=== PATIENT | male | born 1950 | race African-American/Black ===

== ENCOUNTER 2017-10-18 22:10 | Inpatient (IN) | payer OTHER ==
[~2017-10-18] VITALS: Ht 175.3 cm; Wt 97.1 kg
[2017-10-18] MEDS ORDERED: NITROGLYCERIN OINT 1GM/INCH UDPKT TD ONE (23:30)
[2017-10-18] MEDS ORDERED: MORPHINE SULFATE 4 MG/ML CPJ (NOT FOR IM USE) IV ONE (23:45)
[2017-10-18 23:53] LABS: INR 1.1; PROTHROMBIN TIME 11.3 sec (9.4-11.6)
[2017-10-18 23:54] LABS: BASOPHILS % 0.4 % (0.0-2.0); EOSINOPHILS % 1.4 % (0.0-5.0); HEMOGLOBIN. 12.1 g/dL (14.0-18.0); LYMPHOCYTES % 17.3 % (20.0-50.0); MEAN CORPUSCULAR HEMOGLOBIN 28.4 pg (28.0-32.0); MEAN CORPUSCULAR VOLUME 87.1 fL (80.0-94.0); MEAN PLATELET VOLUME 8.3 fl (7.4-10.4); MONOCYTES % 7.3 % (2.0-8.0); NEUTROPHILS % 73.6 % (40.0-76.0); PLATELET 184 x1000/uL (130-400); RED BLOOD CELL COUNT 4.25 mill/uL (4.7-6.1); RED CELL DISTRIBUTION WIDTH 14.6 % (11.6-14.6)
[2017-10-18 23:58] LABS: CARBON DIOXIDE 28 mEq/L (21-32); CHLORIDE 106 mEq/L (98-107); TROPONIN I 0.15 ng/mL (0.00-0.04)
[2017-10-19] MEDS ORDERED: MORPHINE SULFATE 10 MG/ML CPJ IV ONE (00:45)
[2017-10-19] MEDS ORDERED: MORPHINE SULFATE 10 MG/ML CPJ IV SCH (01:00)
[2017-10-19] MEDS ORDERED: AMLODIPINE ×2 (05:34)
[2017-10-19] MEDS ORDERED: LISINOPRIL (05:34)
[2017-10-19] MEDS ORDERED: METOPROLOL (05:34)
[2017-10-19] MEDS ORDERED: PLAVIX (05:34)
[2017-10-19] MEDS ORDERED: ASPI-1159 PO (05:34)
[2017-10-19 05:35] VITALS: BP 167/82
[2017-10-19] MEDS ORDERED: ONDANSETRON HCL 4MG/2ML VIAL IV PRN (06:00)
[2017-10-19] MEDS ORDERED: HYDROCODONE/ACETAMINOPHEN 5/325MG TABLET PO PRN (06:00)
[2017-10-19] MEDS ORDERED: IPRATROPIUM/ALBUTEROL 0.5-3(2.5)MG/3ML NEB INH PRN (06:00)
[2017-10-19] MEDS ORDERED: CLONIDINE 0.1MG TABLET PO PRN (06:00)
[2017-10-19] MEDS ORDERED: DOCUSATE SODIUM 100MG CAPSULE PO PRN (06:00)
[2017-10-19] MEDS ORDERED: ACETAMINOPHEN 325MG TABLET PO PRN (06:00)
[2017-10-19] MEDS: BLOOD SUGAR DIAGNOSTIC STRIP TEST SCH ×4 (06:27→20:36)
[2017-10-19] MEDS: MORPHINE SULFATE 2 MG/ML CPJ (NOT FOR IM USE) IV PRN ×2 (06:29→15:22)
[2017-10-19] MEDS ORDERED: DEXTROSE 50% WATER 50ML SYRINGE IV PRN (06:30)
[2017-10-19] MEDS: INSULIN LISPRO 100 UNITS/ML SUBCUT SCH ×4 (06:41→20:36)
[2017-10-19 08:00] VITALS: BP 167/80
[2017-10-19 08:01] LABS: CREATINE KINASE MB FRACTION 7.8 ng/mL (0.5-3.6)
[2017-10-19 08:05] LABS: TROPONIN I 1.1 ng/mL (0.00-0.04)
[2017-10-19] MEDS ORDERED: AMLODIPINE 10MG TABLET PO SCH (09:00)
[2017-10-19] MEDS ORDERED: ENOXAPARIN 40MG/0.4ML SYR SUBCUT SCH (09:00)
[2017-10-19] MEDS ORDERED: CLOPIDOGREL 75MG TABLET PO SCH ×3 (09:00→10:00)
[2017-10-19] MEDS: METOPROLOL TARTRATE 25MG TABLET PO SCH ×2 (09:13→20:39)
[2017-10-19] MEDS ORDERED: IODIXANOL 320MG/ML 100 ML BOTTLE IV ONE (09:48)
[2017-10-19] MEDS ORDERED: LIDOCAINE HCL 1% 20ML VIAL (Pyxis) INJ ONE (09:49)
[2017-10-19 10:33] LABS: T4 FREE 0.97 ng/dL (0.76-1.46)
[2017-10-19] MEDS ORDERED: IOHEXOL-350 100 ML BOTTLE ONE (11:43)
[2017-10-19 12:00] VITALS: BP 138/73
[2017-10-19 15:44] LABS: CREATINE KINASE MB FRACTION 6.1 ng/mL (0.5-3.6)
[2017-10-19 15:54] LABS: TROPONIN I 0.84 ng/mL (0.00-0.04)
[2017-10-19 16:00] VITALS: BP 154/81
[2017-10-19 20:00] VITALS: BP 157/80
[2017-10-19 20:47] VITALS: BP 157/80
[2017-10-19] MEDS ORDERED: ENOXAPARIN 100MG/ML SYR SUBCUT SCH (21:00)
[2017-10-20] MEDS ORDERED: ASPIRIN 81MG TABLET PO SCH (09:00)
== END 2017-10-19 21:59 | disposition short-term general hospital (02) | DRG 280 ==
LOC: ER 22:34 → EDBEDREQ 23:38 → EDBEDREQTM 23:38 → ENRESERV 10-19 02:53 → SUPCPDRO 10-19 05:52 → 5WST 10-19 06:05
PROVIDERS: ADMIT Hospitalist; ATTEND Hospitalist
DX: I21.4 Non-ST elevation (NSTEMI) myocardial infarction (principal); I50.31 Acute diastolic (congestive) heart failure; I11.0 Hypertensive heart disease with heart failure; E11.9 Type 2 diabetes mellitus without complications; E78.5 Hyperlipidemia, unspecified; M81.0 Age-related osteoporosis without current pathological fracture; I25.119 Atherosclerotic heart disease of native coronary artery with unspecified angina pectoris; Z95.5 Presence of coronary angioplasty implant and graft; Z91.19 Patient's noncompliance with other medical treatment and regimen
CPT/HCPCS: 36415; 71010; 71275; 80053; 82550; 82553; 82962; 83036; 83880; 84439; 84443; 84484; 85025; 85379; 85610; 93005; 93306; 93970; 96374; 99291; J1644; J1650; J2270; J3490; Q9967